=== PATIENT | female | born 1995 | race Hispanic/Latino ===

== ENCOUNTER 2016-12-24 05:34 | Emergency (ER) | payer OTHER ==
[2016-12-24 06:08] LABS: Bilirubin Negative (Negative); Blood, Urine Negative (Negative); Glucose, Urine (Dipstick) Negative (Negative); Ketone, Urine Negative (Negative); Nitrite Negative (Negative); Protein, Urine (Dipstick) Negative (Neg-Trace)
[2016-12-24] MEDS ORDERED: Metoclopramide HCl 10 MG/2 ML VIAL ONE (06:09)
[2016-12-24] MEDS ORDERED: Acetaminophen 500 MG TAB ONE (06:09)
[2016-12-24 06:11] LABS: Bacteria/HPF 1+ HPF (None Seen); Hyaline Casts/LPF 4-6 HYALINE CAST LPF (0-3 Hyaline)
[2016-12-24] MEDS ORDERED: Nitrofurantoin Monohyd/M-Cryst 100 MG CAP PO SCH (06:30)
== END 2016-12-24 07:49 | disposition home or self-care (01) ==
LOC: ERS 05:34
DX: O99.89 Other specified diseases and conditions complicating pregnancy, childbirth and the puerperium (principal); R51 Headache; Z3A.14 14 weeks gestation of pregnancy
CPT/HCPCS: 81003; 81015; 96365; J2765

== ENCOUNTER 2017-02-03 09:55 | Emergency (ER) | payer OTHER | END 2017-02-03 12:11 | disposition home or self-care (01) | LOC: ERS 09:55 | DX: O99.512 Diseases of the respiratory system complicating pregnancy, second trimester (principal); J11.1 Influenza due to unidentified influenza virus with other respiratory manifestations; Z3A.20 20 weeks gestation of pregnancy | CPT/HCPCS: 99283 ==

== ENCOUNTER 2018-03-02 02:18 | Emergency (ER) | payer OTHER ==
[2018-03-02] MEDS ORDERED: Ketorolac Tromethamine 30 MG/ML VIAL ONE (03:13)
[2018-03-02] MEDS ORDERED: diphenhydrAMINE 50 MG/ML VIAL ONE (03:13)
[2018-03-02] MEDS ORDERED: Metoclopramide HCl 10 MG/2 ML VIAL ONE (03:13)
== END 2018-03-02 04:07 | disposition home or self-care (01) ==
LOC: ERS 02:18
DX: G43.009 Migraine without aura, not intractable, without status migrainosus (principal)
CPT/HCPCS: 96365; 96375; J1200; J1885; J2765

== ENCOUNTER 2018-10-12 07:42 | Emergency (ER) | payer OTHER ==
[2018-10-12 08:24] LABS: #Basophils 0.1 thou/uL (0.0-0.2); #Eosinphils 0.1 thou/uL (0.0-0.7); #Lymphocytes 3.5 thou/uL (1.20-3.40); #Monocytes 0.7 thou/uL (0.11-0.59); #Neutrophils 4.4 thou/uL (1.40-6.50); %Basophils 0.8 % (0.0-1.0); %Eosinophils 0.9 % (0.0-10.0); %Lymphocytes 40.2 % (21.0-51.0); %Monocytes 7.6 % (0.0-10.0); %Neutrophils 50.5 % (42.0-75.0); Hemoglobin 11.5 g/dL (12.0-16.0); Mean Corpuscular HGB CONC 33.5 g/dL (32.0-36.0); Mean Corpuscular Hemoglobin 26.8 pg (27.0-31.0); Mean Corpuscular Volume 79.9 fL (78.0-98.0); Mean Platelet Volume 6.6 fL (7.4-10.4); Platelet Count 373 thou/uL (130-400); RBC Distribution Width 14.3 % (11.5-14.5); Red Blood Cell (RBC) Count 4.31 mill/uL (4.20-5.40); White Blood Cell (WBC) Count 8.7 thou/uL (4.8-10.8)
[2018-10-12 08:30] LABS: Bilirubin Negative (Negative); Blood, Urine Negative (Negative); Clarity Clear (Clear); Glucose, Urine (Dipstick) Normal (Negative); Leukocyte Negative Leu/uL (Negative); Nitrite Negative (Negative); Protein, Urine (Dipstick) Negative (Neg-Trace); Urobilinogen Normal mg/dL (Less than 2)
[2018-10-12 08:31] LABS: Pregnancy Test - Urine (BHCG) Negative (Negative); Pregu Control Background? CLEAR/WHITE (CLR/WHITE); Pregu Control Bar Appear? YES (CONTROL BAR); Specific Gravity 1.014 (1.002-1.036)
[2018-10-12] MEDS ORDERED: Ondansetron ODT 4 MG TAB ONE (08:34)
[2018-10-12 08:39] LABS: ALT (SGPT) 10 U/L (8-55); AST (SGOT) 13 U/L (5-34); Albumin 4.3 g/dL (3.5-5.0); Alkaline Phosphatase 96 U/L (40-150); Anion Gap 12 mmol/L (10-20); BUN (Urea Nitrogen) 9 mg/dL (7.0-18.7); Bilirubin, Total 0.3 mg/dL (0.2-1.2); Calc. Creatinine Clearance 0 mL/min (70-130); Calcium 9.1 mg/dL (7.8-10.44); Carbon Dioxide 22 mmol/L (22-29); Chloride 106 mmol/L (98-107); Estimated GFR-MDRD Greater than 90; Glucose 92 mg/dL (70-105); Lipase 20 U/L (8-78); Potassium 3.7 mmol/L (3.5-5.1); Protein, Total 7.3 g/dL (6.0-8.3); Sodium 136 mmol/L (136-145)
[2018-10-12] MEDS ORDERED: Lidocaine Viscous Sol 2% 15 ml UD Cup ONE (09:29)
[2018-10-12] MEDS ORDERED: Mag-Al 1200 mg/1200 mg/30 ML UDCUP ONE (09:29)
--- NOTE | 2018-10-12 11:45 | ULT ---
GALLBLADDER ULTRASOUND: Date: 10/12/18 HISTORY: Right upper quadrant pain. FINDINGS: Real-time imaging of the right upper quadrant shows a normal appearing gallbladder. Common duct is 3 mm. Technologist reports a negative ultrasound Garsia's sign. The liver shows no focal abnormalities. It measures 15.0 cm. Right kidney is normal in size and nonobstructed. IMPRESSION: Unremarkable gallbladder ultrasound. POS: OFF
== END 2018-10-12 11:11 | disposition home or self-care (01) ==
LOC: ERS 07:42
DX: K21.9 Gastro-esophageal reflux disease without esophagitis (principal); G43.909 Migraine, unspecified, not intractable, without status migrainosus; Z79.899 Other long term (current) drug therapy
CPT/HCPCS: 36415; 76705; 80053; 81003; 81025; 83605; 83690; 85025; Q0162

== ENCOUNTER 2019-04-30 11:34 | Emergency (ER) | payer OTHER ==
--- NOTE | 2019-04-30 12:20 | RAD ---
PORTABLE CHEST: HISTORY: Cough, chest pain. FINDINGS: Heart size and mediastinum are within normal limits. There is some vague increased density in both b ases. This could represent some minimal infiltrative change. Upper lobes are clear. IMPRESSION: Suggestion of some bibasilar parenchymal changes suggesting some early infiltrate. The changes are m ore convincing in the left base along the left heart border. POS: TPC
== END 2019-04-30 13:16 | disposition home or self-care (01) ==
LOC: ERS 11:34
DX: J18.9 Pneumonia, unspecified organism (principal); G43.909 Migraine, unspecified, not intractable, without status migrainosus
CPT/HCPCS: 71045; 87804; 93005

== ENCOUNTER 2019-07-01 15:37 | Emergency (ER) | payer OTHER ==
[2019-07-01] MEDS ORDERED: Metoclopramide HCl 10 MG/2 ML VIAL ONE (18:04)
[2019-07-01] MEDS ORDERED: diphenhydrAMINE 50 MG/ML VIAL ONE (18:04)
[2019-07-01] MEDS ORDERED: Ketorolac Tromethamine 30 MG/ML VIAL ONE (20:03)
== END 2019-07-01 20:09 | disposition home or self-care (01) ==
LOC: ERS 15:37
DX: R51 Headache (principal)
CPT/HCPCS: 94760; 96365; 96375; J1200; J1885; J2765

== ENCOUNTER 2020-03-18 23:45 | Emergency (ER) | payer OTHER ==
--- NOTE | 2020-03-19 08:13 | RAD ---
EXAM: Single view of the chest HISTORY: Cough and chest pain COMPARISON: 04/30/2019 FINDINGS: Single view of the chest shows a normal sized cardiomediastinal silhouette. There is no eleno dence of consolidation, mass, or pleural effusion. No acute osseous abnormality. IMPRESSION: No evidence of acute cardiopulmonary disease
[2020-03-19 08:35] LABS: SARS-CoV-2 PCR by NAA Not Detected (NotDetected)
== END 2020-03-19 02:43 | disposition home or self-care (01) ==
LOC: ERS 23:45
DX: J06.9 Acute upper respiratory infection, unspecified (principal); Z20.822 Contact with and (suspected) exposure to COVID-19
CPT/HCPCS: 71045; 87635; 93005; U0003; U0005

== ENCOUNTER 2020-04-25 10:21 | Emergency (ER) | payer OTHER | END 2020-04-25 11:38 | disposition home or self-care (01) | LOC: ERS 10:21 | DX: H66.91 Otitis media, unspecified, right ear (principal) | CPT/HCPCS: 99282 ==

== ENCOUNTER 2020-12-15 09:20 | Emergency (ER) | payer OTHER ==
[2020-12-15] MEDS ORDERED: Acetaminophen 500 MG TAB ONE (09:47)
[2020-12-15] MEDS ORDERED: Ibuprofen 800 MG TAB ONE (09:48)
[2020-12-15] MEDS ORDERED: Metoclopramide HCl 10 MG/2 ML VIAL ONE (09:48)
[2020-12-15 10:25] LABS: Bilirubin Negative (Negative); Blood, Urine Negative (Negative); Clarity Clear (Clear); Glucose, Urine (Dipstick) Normal (Negative); Ketone, Urine Negative (Negative); Leukocyte 75 Leu/uL (Negative); Nitrite Negative (Negative); Protein, Urine (Dipstick) 100 mg/dL (Neg-Trace); RBC/HPF 0-3 HPF (0-3); Urobilinogen Normal mg/dL (Less than 2); WBC/HPF 0-3 HPF (0-3)
[2020-12-15 10:27] LABS: Bacteria/HPF 1+ HPF (None Seen); Pregnancy Test - Urine (BHCG) Negative (Negative); Pregu Control Background? CLEAR/WHITE (CLR/WHITE); Pregu Control Bar Appear? YES (CONTROL BAR); Specific Gravity 1.061 (1.002-1.036); Specific Gravity, Urine 1.061 (1.002-1.036)
== END 2020-12-15 12:20 | disposition home or self-care (01) ==
LOC: ERS 09:20
DX: B34.9 Viral infection, unspecified (principal)
CPT/HCPCS: 81003; 81015; 81025; 96374; J2765

== ENCOUNTER 2021-06-07 12:24 | Emergency (ER) | payer MEDICAID, OTHER ==
[2021-06-07] MEDS ORDERED: Boostrix 0.5 ML (Tdap) VIAL ONE (16:03)
== END 2021-06-07 16:07 | disposition home or self-care (01) ==
LOC: ERS 12:24
DX: S60.222A Contusion of left hand, initial encounter (principal); G43.909 Migraine, unspecified, not intractable, without status migrainosus; X58.XXXA Exposure to other specified factors, initial encounter
CPT/HCPCS: 90471; 90715

== ENCOUNTER 2021-06-23 12:16 | Emergency (ER) | payer OTHER ==
[~2021-06-23 12:16] MED LIST: Iopamidol-370 76% 500 ML 1 ML ONE
[2021-06-23 12:49] LABS: #Eosinphils 0.1 thou/uL (0.0-0.7); #Lymphocytes 1.9 thou/uL (1.20-3.40); #Monocytes 0.4 thou/uL (0.11-0.59); #Neutrophils 4.1 thou/uL (1.40-6.50); %Basophils 0.3 % (0.0-1.0); %Eosinophils 0.9 % (0.0-10.0); %Lymphocytes 28.8 % (21.0-51.0); %Monocytes 6.8 % (0.0-10.0); %Neutrophils 63.2 % (42.0-75.0); Hemoglobin 13.7 g/dL (12.0-16.0); Mean Corpuscular HGB CONC 33.2 g/dL (32.0-36.0); Mean Corpuscular Hemoglobin 30.2 pg (27.0-31.0); Mean Corpuscular Volume 91.1 fL (78.0-98.0); Mean Platelet Volume 6.5 fL (7.4-10.4); Platelet Count 340 thou/uL (130-400); RBC Distribution Width 12.4 % (11.5-14.5); Red Blood Cell (RBC) Count 4.54 mill/uL (4.20-5.40); White Blood Cell (WBC) Count 6.4 thou/uL (4.8-10.8)
[2021-06-23 12:53] LABS: Bacteria/HPF None Seen HPF (None Seen); Bilirubin Negative (Negative); Blood, Urine 2+ (Negative); Clarity Clear (Clear); Glucose, Urine (Dipstick) Normal (Negative); Ketone, Urine Negative (Negative); Leukocyte Negative Leu/uL (Negative); Nitrite Negative (Negative); Protein, Urine (Dipstick) Negative (Neg-Trace); RBC/HPF 0-3 HPF (0-3); Specific Gravity, Urine 1.012 (1.002-1.036); Squamous Epithelial 0-3 HPF (0-3); Urobilinogen Normal mg/dL (Less than 2); WBC/HPF 0-3 HPF (0-3)
[2021-06-23 12:56] LABS: BHCG - Serum Negative (NEGATIVE); Pregs Control Background? CLEAR/WHITE (CLR/WHITE); Pregs Control Bar Appear? YES (CONTROL BAR)
[2021-06-23 13:11] LABS: ALT (SGPT) 10 U/L (8-55); AST (SGOT) 14 U/L (5-34); Albumin 4.3 g/dL (3.5-5.0); Alkaline Phosphatase 99 U/L (40-110); Anion Gap 13 mmol/L (10-20); BUN (Urea Nitrogen) 6 mg/dL (7.0-18.7); Bilirubin, Total 0.4 mg/dL (0.2-1.2); Calc. Creatinine Clearance 0 mL/min (70-130); Calcium 8.9 mg/dL (7.8-10.44); Carbon Dioxide 21 mmol/L (22-29); Chloride 108 mmol/L (98-107); Globulin 3.1 g/dL (2.4-3.5); Glucose 101 mg/dL (70-105); Potassium 3.9 mmol/L (3.5-5.1); Protein, Total 7.4 g/dL (6.0-8.3); Sodium 138 mmol/L (136-145)
[2021-06-23] MEDS ORDERED: Ondansetron PF 4 MG/2 ML Vial ONE (15:12)
[2021-06-23] MEDS ORDERED: Dicyclomine 20 MG/2 ML VIAL ONE (15:12)
[2021-06-23] MEDS ORDERED: Ketorolac Tromethamine 30 MG/ML VIAL ONE (16:46)
[2021-06-24 17:21] LABS: Chlamydia by PCR Not Detected (NotDetected); GC by PCR Not Detected (NotDetected)
== END 2021-06-23 18:21 | disposition home or self-care (01) ==
LOC: ERS 12:16
DX: N83.202 Unspecified ovarian cyst, left side (principal); N76.0 Acute vaginitis; B96.89 Other specified bacterial agents as the cause of diseases classified elsewhere; R11.10 Vomiting, unspecified; R19.7 Diarrhea, unspecified
CPT/HCPCS: 36415; 74177; 76856; 80053; 81003; 81015; 83690; 84703; 85025; 87480; 87491; 87510; 87591; 87660; 93976; 94760; 96361; 96372; 96374; 96375; J0500; J1885; J2405; Q9967

== ENCOUNTER 2022-01-11 03:14 | Emergency (ER) | payer OTHER ==
[2022-01-11] MEDS ORDERED: Metoclopramide HCl 10 MG/2 ML VIAL ONE (04:08)
[2022-01-11] MEDS ORDERED: Acetaminophen 500 MG TAB ONE (04:08)
[2022-01-11] MEDS ORDERED: diphenhydrAMINE 50 MG/ML VIAL ONE (04:08)
== END 2022-01-11 06:03 | disposition home or self-care (01) ==
LOC: ERS 03:14
DX: G43.909 Migraine, unspecified, not intractable, without status migrainosus (principal)
CPT/HCPCS: 96365; 96375; J1200; J2765

== ENCOUNTER 2023-04-09 23:06 | Emergency (ER) | payer OTHER ==
[2023-04-09] MEDS ORDERED: Metoclopramide HCl 10 MG (2 mL) VIAL ONE (23:30)
[2023-04-09] MEDS ORDERED: diphenhydrAMINE 50 MG/ML VIAL ONE (23:30)
[2023-04-09] MEDS ORDERED: Ketorolac Tromethamine 30 MG (1 mL) VIAL ONE (23:39)
== END 2023-04-10 01:36 | disposition home or self-care (01) ==
LOC: ERS 23:06
DX: G43.909 Migraine, unspecified, not intractable, without status migrainosus (principal); B34.9 Viral infection, unspecified
CPT/HCPCS: 96365; 96366; 96375; J1200; J1885; J2765

== ENCOUNTER 2024-11-08 19:10 | Emergency (ER) | payer MEDICAID, SELFPAY ==
[~2024-11-08 19:10] MED LIST changes: -Iopamidol-370 76% 500 ML 1 ML ONE; +Iopamidol-370 76% 500 ML MDV (1 ML CHARGE) ONE
[2024-11-08 19:46] LABS: #Basophils 0.06 10x3/uL (0.0-0.2); #Eosinophils 0.04 10x3/uL (0.0-0.7); #Monocytes 0.44 10x3/uL (0.11-0.59); #Neutrophils 6.29 10x3/uL (1.40-6.50); %Basophils 0.6 % (0.0-1.0); %Eosinophils 0.4 % (0.0-10.0); %Lymphocytes 34.0 % (21.0-51.0); %Monocytes 4.2 % (0.0-10.0); %Neutrophils 60.4 % (42.0-75.0); Hematocrit 32.1 % (36.0-47.0); Hemoglobin 9.5 g/dL (12.0-16.0); Mean Corpuscular Hemoglobin 23.2 pg (27.0-31.0); Mean Corpuscular Volume 78.3 fL (78.0-98.0); Platelet Count 459 10x3/uL (130-400); Red Blood Cell (RBC) Count 4.10 mill/uL (4.20-5.40); White Blood Cell (WBC) Count 10.41 10x3/uL (4.8-10.8)
[2024-11-08 20:02] LABS: ALT (SGPT) 7 U/L (Less than 34); AST (SGOT) 15 U/L (11-34); Albumin 4.3 g/dL (3.1-4.5); Alkaline Phosphatase 87 U/L (40-110); Anion Gap 16 mmol/L (10-20); BUN (Urea Nitrogen) 8 mg/dL (7.0-18.7); Bilirubin, Total 0.2 mg/dL (0.3-1.2); Calc. Creatinine Clearance 0 mL/min (70-130); Calcium 8.9 mg/dL (7.8-10.44); Carbon Dioxide 20 mmol/L (22-29); Chloride 110 mmol/L (98-107); Globulin 3.2 g/dL (2.4-3.5); Glucose 143 mg/dL (70-105); Potassium 3.2 mmol/L (3.5-5.1); Sodium 143 mmol/L (136-145)
[2024-11-08] MEDS ORDERED: Droperidol 5 MG/2 ML VIAL ONE (20:24)
[2024-11-08] MEDS ORDERED: Ketorolac Tromethamine 30 MG (1 mL) VIAL ONE (20:25)
[2024-11-08 21:47] LABS: BHCG - Serum Negative (NEGATIVE); Pregs Control Background? CLEAR/WHITE (CLR/WHITE); Pregs Control Bar Appear? YES (CONTROL BAR)
== END 2024-11-08 23:29 | disposition home or self-care (01) ==
LOC: ERS 19:10
DX: R07.9 Chest pain, unspecified (principal); R11.2 Nausea with vomiting, unspecified
CPT/HCPCS: 36415; 71045; 71275; 80053; 83690; 84484; 84703; 85025; 93005; 96365; 96375; J1790; J1885; Q9967